=== PATIENT | female | born 1940 | race Caucasian/White ===

== ENCOUNTER → 2024-04-14 09:04 | Outpatient (REF) | payer OTHER, SELFPAY ==
--- NOTE | 2024-03-30 11:20 | WATCHMAN ---
Watchman
Wathcman Procedure
Referred by:: Pepe/Quintin
Date of Referral:: 02/21/24
[id number] Score
Age in Years (65=0, 65-74=1, >/=75=2): > or = 75
Sex (Female=+1): Female
Congestive Heart Failure History (Yes=+1): No
Hypertension History (Yes=+1): Yes
Stroke/TIA/Thromboembolism History (Yes=+2): Yes
Vascular Disease History (Yes=+1): No
Diabetes Mellitus (Yes=+1): Yes
Score: 7
Anticoagulation Recommendations: Recommend anticoagulation (as validated in nonvalvular fib)
HASBLED Score
Hypertenstion (uncontrolled >160mmHG systolic): Yes
Renal disease (dialysis, transplant, Cr >2.26mg/dL or >200umol/L): No
Liver disease (cirrhosis or bilirubin >2x normal w/ AST/ALT/AP >3x normal: No
Stroke history: Yes
Prior major bleeding or predisposition to bleeding: Yes
Labile INR(unsable/high INRs,time in therapeutic range <60%): No
Age >65: Yes
Medication usage predisposing to bleeding(ASA, NSAIDS): No
Alcohol use (>/= 8 drinks/week): No
Score: 4
Risk: Alternatives to anticoagulation should be considered: Patient is at high risk for major bleeding
Electrocardiogram
Interpretation: abnormal
Heart Rate: 69
Rate: normal
Rhythm: av sequential
Physician Visits
Senior Animator:: Pepe
Date of Visit:: 02/21/24
Primary Upstairs Maid:: Jimmy Ribeiro
Date of Visit:: 12/13/23
PCP:: Arielle Mcleod
Plan
Plan:: 02/24/2024: Spoke to patient and reviewed watchman evaluation process. She would like to proceed. Patient needs BMP. Prescription mailed to her per her request and will get blood drawn at [facility].
03/09/2024: Patient called to let me know she has COVID so has not gotten blood work yet.
03/25/2024: Patient had blood work done.
03/30/2024: Reviewed BMP. GFR 71. Called and scheduled patient for Watchman CT scan 04/09/2024 at 0930. Reviewed instructions of nothing to eat 3 hours prior and to bring a list of medications with her. patient has contrast allergy. Called in
prescription for Prednisone 50mg po 13 hours, 7 hours, [address] scan [address] [facility] in [place]. Reviewed schedule with patient as well as to take Benadryl 50mg [address]. Allowed for and answered questions.
== END ==
LOC: RAD 09:04
PROVIDERS: ATTENDING PHYSICIAN Internal Medicine Cardiovascular Disease
DX: I48.0 Paroxysmal atrial fibrillation (principal)
CPT/HCPCS: 75572; Q9967

== ENCOUNTER 2024-07-21 07:41 | Inpatient (IN) | payer OTHER, SELFPAY ==
[2024-07-06 09:39] VITALS: BMI 26.7
[2024-07-06 10:16] LABS: % Basophils 0.6 % (0-2); % Eosinophils 3.5 % (0-6); % Immature Granulocytes 0.5 % (0-0.5); % Monocytes 8.6 % (1.7-9.3); % Neutrophils 74.8 % (42.2-75.2); Absolute Eosinophils 0.2 10^3/uL (0-0.7); Absolute Lymphocytes 0.8 10^3/uL (1.2-3.4); Absolute Monocytes 0.5 10^3/uL (0.1-0.6); Absolute Neutrophils 4.7 10^3/uL (1.4-6.5); Hematocrit 41.9 % (37.0-47.0); Hemoglobin 14.5 g/dL (12.0-16.0); Mean Corp Hgb Conc. 34.6 g/dL (33.0-37.0); Mean Corpuscular Volume 86.6 fL (81.0-99.0); Mean Platelet Volume 9.3 fL (7.4-10.4); Nucleated Red Blood Cells % 0 %; Platelet Count 253 10^3/uL (130-400); Red Blood Cell Count 4.84 10^6/uL (4.20-5.40); Red Cell Dist. Width 14.6 % (11.5-14.5); White Blood Cell Count 6.3 10^3/uL (4.8-10.8)
[2024-07-06 10:25] LABS: INR 1.41; PT 17.7 Sec (11.4-14.6)
[2024-07-06 10:42] LABS: ALT (SGPT) 17 U/L (0-35); AST (SGOT) 21 U/L (14-36); Albumin 4.2 g/dl (3.5-5.0); Alkaline Phosphatase 72 U/L (38-126); Blood Urea Nitrogen 17 mg/dl (7-17); Calcium 9.4 mg/dl (8.4-10.2); Carbon Dioxide 23 mmol/L (22-30); Chloride 106 mmol/L (98-107); Estimated Creatinine Clearance 51 ml/min; Glucose 135 mg/dl (70-99); Potassium 3.9 mmol/L (3.5-5.1); Sodium 145 mmol/L (135-145); Total Bilirubin 1.1 mg/dl (0.2-1.3); eGFR > 60.00
[2024-07-21] VITALS (16 sets, daily range): BP systolic 104–130; BP diastolic 47–70; BMI 29.3
[2024-07-21] MEDS: SOLU-CORTEF 200 MG IV (09:02)
[2024-07-21] MEDS: PEPCID 20 MG IV (09:07)
[2024-07-21] MEDS: BENADRYL 50 MG IV (09:23)
[2024-07-21 10:06] LABS: Glucose - Point of Care 105 mg/dl (70-99)
[2024-07-21 10:33] LABS: ACT-LR - POC 202 Seconds (116-155)
[2024-07-21 10:41] LABS: ACT-LR - POC 200 Seconds (116-155)
--- NOTE | 2024-07-21 10:55 | ITS.CL.PN ---
Reimbursement Spec - Procedure Note
Procedure
Procedure Note:
Watchman implantation report
Date: July 21, 2024
mill crane operator/device delivery: Dr. Breen
anodize machine operator/venous access and transseptal: Dr. Cantu
History: Elevated fall risk and elevated bleeding risk due to falls as well as high stroke risk and history of atrial fibrillation. Prior dual-chamber [employer] pacemaker placed in 2014 in [place] for complete heart block and she is 100%
paced.
Procedure report:
After informed consent and patient safety timeout the patient was sedated by the anesthesiology service. This was performed under general anesthesia. Please see separate BRANDYN report for the those images. The dual-chamber pacemaker was interrogated
without changes made to programming and was left in DDD mode 60 to 130 bpm. She is 100% paced with underlying complete heart block.
Under ultrasound guidance the right femoral vein was accessed 1 cm apart with separate venous sticks with an 8 Malay and 9 Malay sheath placed in the right femoral vein. Intracardiac ultrasound was utilized to visualize the fossa and over a wire
the watchman sheath was brought up to the SVC. The table wire was exchanged for an RF wire and the apparatus was brought down onto the interatrial septum. Low anterior stick with RF wire and the sheath was brought into the left atrium. Heparin
was given to maintain an ACT greater than 300 seconds. BRANDYN at baseline demonstrated no left atrial Penders thrombus there was a small effusion particular in the right atrium and right ventricle at the beginning of the procedure and there was no
change at the end of the procedure.
Dye injection was given to the left atrial appendage demonstrating a cauliflower morphology with a [address] Breen delivered the device which was a 24 mm device with 16 to 20% compression and which met Pass criteria. Transseptal cager operator
was Dr. Cantu. Once Pass criteria was met the device was deployed and sheath was removed from the left atrium. Under direct fluoroscopic visualization the sheath and the intracardiac ultrasound was withdrawn from the heart with stable lead
positions and sheaths and catheters were withdrawn after 25 mg of protamine [id number] suture to the right femoral vein. The patient tolerated the procedure well.
Impression:
Status post 24 mm Watchman device which met Pass criteria as above. She will be on 3 months of apixaban 2.5 mg p.o. twice daily and will continue her amiodarone for rhythm control.
Copy: Dr. Jimmy Ribeiro
--- NOTE | 2024-07-21 11:03 | WATCHMAN.MD ---
Watchman Implant
-
ELECTROPHYSIOLOGY/INTERVENTIONAL PROCEDURE REPORT
Date of Procedure: July 21, 2024
Referring: Jimmy Ribeiro
Assisting Physician: Harsha Cantu
PROCEDURES:
1. Left atrial appendage occlusion device using 24 mm WATCHMAN FLX device
2. Intracardiac echocardiography
3. Ultrasound-guided right common femoral venous access
INDICATION: Atrial fibrillation warranting long-term anticoagulation with contraindication for long-term anticoagulation due to bleeding risk.
ACCESS: Right common femoral vein, 16Fr sheath and 9Fr sheath, under US guidance using micropunture kit.
HEMODYNAMICS : (mmHg)
LA Pressure: 9
PROCEDURE REPORT:
After informed consent and patient safety 'Timeout' the patient was intubated and sedated by the anesthesiology service. Under ultrasound guidance, the right femoral vein was accessed by Dr. Harsha Cantu for transseptal puncture. Concomitant
transesophageal echocardiogram was performed by Dr. Nicko Camacho
Baseline intracardiac ultrasound demonstrated no pericardial effusion and baseline BRANDYN images revealed a trace pericardial effusion.
After ruling out a left atrial appendage thrombus, the patient was heparinized for an ACT between 350-400 seconds and under BRANDYN and intracardiac ultrasound guidance transseptal puncture was performed by Dr. Shala Breen using the [employer] RF
trans-septal system through the steerable watchman access sheath in a mid position on the inferior-superior axis and a mid position on the anterior-posterior axis. Left atrial pressure was 9 millimeters mercury.
Once transseptal puncture was performed over the [employer] RF wire parked in the body of the left atrium, the steerable watchman access sheath was advanced over this. A 5 [place] pigtail catheter was placed into the left atrial appendage and an
appendage gram was performed using intravenous contrast dye demonstrating a cauliflower type anatomy that was suitable likely for a 24 mm WATCHMAN FLX device.
After appropriately prepping the device, Dr. Shala Breen successfully deployed a 24 mm WATCHMAN FLX device. Device showed excellent positioning with no leaks post device deployment. 22 to 30 % compression was noted in the device after deployment.
A 'tug-test' was performed demonstrating stability of the device. Given PASS criteria were met, the device was then released successfully by Dr. Shala Breen
Post procedure, BRANDYN imaging demonstrated no new or worse pericardial effusion. Sheaths and catheters were removed from the left atrium and heparin was reversed using protamine. Catheters removed from the femoral vein and figure of 8 suture was
applies. The patient tolerated the procedure well.
RADIATION SUMMARY: Fluoro Time (min): 6.7, Dose (mGy): 26.18, DAP (Gy.cm2) : 2.92
Closure Device: Figure of 8 suture was applied
CONCLUSIONS
1. Successful deployment of 24 mm WATCHMAN FLX device under BRANDYN and ICE guidance.
RECOMMENDATIONS
1. Plan for Eliquis 2.5mg twice daily for the next 3 months.
2. 3-month BRANDYN post procedure to assess stability of device and rule out any eda-device leaks.
Copy: Jimmy Ribeiro
Shala Breen MD, [facility], [facility]
--- NOTE | 2024-07-21 15:45 | PTCARENOTE ---
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 R femoral dsg D+I, + DP pulse.
[2024-07-21] MEDS: PACERONE 200 MG PO (17:15)
[2024-07-21] MEDS: TOPROL XL 50 MG PO (17:15)
[2024-07-21] MEDS: MAALOX 30 ML PO (17:37)
[2024-07-21] MEDS: ELIQUIS 5 MG PO (20:05)
[2024-07-21] MEDS: PROTONIX 40 MG PO (20:05)
[2024-07-21] MEDS: AMITIZA 24 MCG PO (20:05)
--- NOTE | 2024-07-21 21:49 | PTCARENOTE ---
Received patient at change of shift. V paced on the monitor, HR in the 60s. VSS. R groin dressing with minimal drainage, marked with sharpie. No evidence of hematoma. No complaints from pt at this time, call richard within reach.
[2024-07-22] MEDS: TYLENOL 650 MG PO (02:26)
[2024-07-22 02:40] VITALS: BP 140/50
[2024-07-22 04:20] LABS: Blood Urea Nitrogen 21 mg/dl (7-17); Calcium 8.7 mg/dl (8.4-10.2); Carbon Dioxide 24 mmol/L (22-30); Chloride 106 mmol/L (98-107); Estimated Creatinine Clearance 54 ml/min; Glucose 215 mg/dl (70-99); Magnesium 1.9 mg/dl (1.6-2.3); Potassium 3.5 mmol/L (3.5-5.1); Sodium 139 mmol/L (135-145); eGFR > 60.00
[2024-07-22 04:24] LABS: Hematocrit 31.9 % (37.0-47.0); Hemoglobin 11.3 g/dL (12.0-16.0); Mean Corp Hgb Conc. 35.4 g/dL (33.0-37.0); Mean Corpuscular Hgb 29.5 pg (27.0-31.0); Mean Corpuscular Volume 83.3 fL (81.0-99.0); Mean Platelet Volume 9.3 fL (7.4-10.4); Platelet Count 200 10^3/uL (130-400); Red Blood Cell Count 3.83 10^6/uL (4.20-5.40); Red Cell Dist. Width 14.9 % (11.5-14.5); White Blood Cell Count 5.5 10^3/uL (4.8-10.8)
--- NOTE | 2024-07-22 07:27 | W.PN.CARDCBS ---
Today's Communication / Plan
-
Safer discharge today
BRANDYN in 3 months
Or anticoagulation until BRANDYN
Impression / Plan
-
Impression
1. Paroxysmal atrial fibrillation.
2. Hypertension.
3. Hyperlipidemia.
4. Noninsulin-dependent diabetes with associated retinopathy.
5. History of retinal detachment.
6. 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
7. Complete heart block status post pacemaker.
8. Ambulatory dysfunction.
9. Left hip fracture ORIF.
10. Irritable bowel.
11. Osteoporosis.
12. Gastroesophageal reflux disease
13. s/p Watchman 07/21
14. History of [employer] pacemaker
Plan:
BRANDYN in 3 months
Oral anticoagulation until BRANDYN as prescribed
Out of bed and safe for discharge today
Outpatient follow-up with Dr. Ribeiro
Progress Note - Software Applications Developer
Subjective
Date of Service: July 22, 2024
Feels well
Objective
Labs:
07/22/24 03:28
07/22/24 03:28
Labs
Hgb 11.3 g/dL (12.0-16.0) L 07/22/24 03:28
Hct 31.9 % (37.0-47.0) L 07/22/24 03:28
Plt Count 200 10^3/uL (130-400) 07/22/24 03:28
PT 17.7 Sec (11.4-14.6) H 07/06/24 09:50
INR 1.41 07/06/24 09:50
Sodium 139 mmol/L (135-145) 07/22/24 03:28
Potassium 3.5 mmol/L (3.5-5.1) 07/22/24 03:28
BUN 21 mg/dl (7-17) H 07/22/24 03:28
Creatinine 0.7 mg/dL (0.6-1.0) 07/22/24 03:28
Glucose 215 mg/dl (70-99) H 07/22/24 03:28
Vital Signs and I&O:
Vital Signs
Temp Pulse Resp BP Pulse Ox
97.7 F 60 20 140/50 98
07/22/24 02:40 07/22/24 04:00 07/22/24 02:40 07/22/24 02:40 07/22/24 02:40
Vital Signs
Temp Pulse Resp BP Pulse Ox
97.7 F 60 20 140/50 98
07/22/24 02:40 07/22/24 04:00 07/22/24 02:40 07/22/24 02:40 07/22/24 02:40
Intake & Output
07/20/24 07/21/24 07/22/24 07/23/24
06:59 06:59 06:59 06:59
Intake Total 480 / 480
Balance 480 / 480
Physical Exam
Physical Exam
�
����Physical Exam
�
���������������������General:��no apparent distress, not acutely ill
�
���������������������������Neck:��supple. no meningeal signs. normal psoterior pharynx
������������������������
���������������������������Heart:��s1/s2 regular rate and rhythm, no murmur. equal radial pulses.
�
��������������������������Lungs: ��no acute respiratory distress. clear bilaterally
�
����������������������Abdomen:�normal bowel sounds. not tender. no CVAT
�
��������������������������Neuro:��alert and oriented. no focal neurological deficits
�
������������������������������Skin: ��no rash
�
�����������������������Psychiatric:�well kept. interactive and cooperative
�
�����������������������Extremities:��no edema. no calf tenderness. negative homans. good distal pulses
�
�
�
��
�
[2024-07-22] MEDS: PROTONIX 40 MG PO (07:41)
[2024-07-22] MEDS: AMITIZA 24 MCG PO (07:41)
[2024-07-22] MEDS: ELIQUIS 5 MG PO (07:41)
[2024-07-22] MEDS: VISBIOME 1 CAP PO (07:41)
[2024-07-22] MEDS: FARXIGA 10 MG PO (07:41)
[2024-07-22] MEDS: MYRBETRIQ EXTENDED RELEASE 50 MG PO (07:41)
[2024-07-22 08:10] VITALS: BP 128/56
--- NOTE | 2024-07-22 09:12 | PTCARENOTE ---
Patient remains v-paced on the monitor tech; Offers no complaints this morning; Denies pain, shortness of breath, nausea, and/or vomiting; Patient voiding appropriately; Right groin puncture site with gauze and tegaderm, small amount of
drainage (marked by previous shift) unchanged, site soft to palpation, no edema, no ecchymosis, no evidence of hematoma; Bilateral pedal pulses +2 to palpation; Plan of care ongoing
[2024-07-22 10:48] VITALS: BP 128/56
--- NOTE | 2024-07-22 11:41 | CM ---
CM following for DC planning needs.
Met w/ patient at bedside to complete initial assessment.
Pt. resides in a private, 1 story apartment alone. Pt. is functionally indep. w/ use of a SPC @ times (though per patient's report she doesn't really 'need' this).
Patient is anticipating DC to home today. Dtr. to transport home.
There are no identified DC needs.
Plan: HOME
--- NOTE | 2024-07-22 12:28 | CM ---
spoke to pt in room, she is insisting on taking Uber home and does not want to wait fo her daughter this afternoon. texted daughter, Dennise, no response. pts other daughter ( in [place]) is arranging her uber for her today. pt is agreeable to this
situation.
== END 2024-07-22 12:30 | disposition home or self-care (01) | DRG 274 ==
LOC: IVU 07:41
PROVIDERS: Nurse Practitioner Adult Health; Student in an Organized Health Care Education/Training Program; ADMITTING PHYSICIAN Internal Medicine Cardiovascular Disease
PROC: 02L73DK Occlusion of Left Atrial Appendage with Intraluminal Device, Percutaneous Approach (ICD-10-PCS; 2024-07-21)
PROC: B24BZZ4 Ultrasonography of Heart with Aorta, Transesophageal (ICD-10-PCS; 2024-07-21)
DX: I48.0 Paroxysmal atrial fibrillation (principal); I10 Essential (primary) hypertension; I44.2 Atrioventricular block, complete; E78.5 Hyperlipidemia, unspecified; E11.319 Type 2 diabetes mellitus with unspecified diabetic retinopathy without macular edema; K21.9 Gastro-esophageal reflux disease without esophagitis; M81.0 Age-related osteoporosis without current pathological fracture; K58.9 Irritable bowel syndrome, unspecified; Z95.0 Presence of cardiac pacemaker; Z87.891 Personal history of nicotine dependence; Z86.73 Personal history of transient ischemic attack (TIA), and cerebral infarction without residual deficits; Z79.84 Long term (current) use of oral hypoglycemic drugs; Z79.01 Long term (current) use of anticoagulants
CPT/HCPCS: 33340; 36415; 70450; 80048; 80053; 82962; 83735; 85025; 85027; 85347; 85610; 86850; 86900; 86901; 87070; 93005; 93355; C1759; C1892; C1894; Q9967

== ENCOUNTER 2024-10-20 07:19 | Day surgery (SDC) | payer OTHER, SELFPAY | END 2024-10-20 10:29 | disposition home or self-care (01) | LOC: CATH 07:19 | PROVIDERS: ATTENDING PHYSICIAN Nuclear Medicine Nuclear Cardiology; FAMILY PHYSICIAN Internal Medicine; OTHER PHYSICIAN Internal Medicine Cardiovascular Disease | DX: Z09 Encounter for follow-up examination after completed treatment for conditions other than malignant neoplasm (principal); I08.2 Rheumatic disorders of both aortic and tricuspid valves; I70.0 Atherosclerosis of aorta; I10 Essential (primary) hypertension; E78.5 Hyperlipidemia, unspecified; E11.319 Type 2 diabetes mellitus with unspecified diabetic retinopathy without macular edema; Z79.4 Long term (current) use of insulin; Z79.84 Long term (current) use of oral hypoglycemic drugs; Z79.01 Long term (current) use of anticoagulants; Z79.899 Other long term (current) drug therapy; Z95.818 Presence of other cardiac implants and grafts | CPT/HCPCS: 93312; 93320; 93325 ==